=== PATIENT | female | born 1980 | race Caucasian/White ===

== ENCOUNTER 2025-04-21 16:30 | Emergency (ER) | payer OTHER, SELFPAY ==
--- NOTE | ~2025-04-21 | XR_ITS ---
EXAMINATION: XR chest 2V, 04/21/2025 16:50 SPEECH PATHOLOGY SUPERVISOR HISTORY: CP AND SOB X 1HR COMPARISON: No comparisons available. Technique: 2 views obtained. Findings: The lungs are clear, no effusion. No pneumothorax. Heart is normal size. Mediastinal and hilar contours are within normal limits. Bony thorax no acute abnormality. Impression: No acute cardiopulmonary abnormality. Reviewed, dictated and finalized at location P. [facility] PATHOLOGY SUPERVISOR Impression: No acute cardiopulmonary abnormality.
--- NOTE | ~2025-04-21 | CT_ITS ---
Concha Long EXAMINATION: CT abdomen pelvis w con COMPARISON: None HISTORY: Epigastric pain, elevated lipase TECHNIQUE: Axial images were obtained through the abdomen, pelvis post administration of IV contrast. Oral contrast was also administered. Coronal reconstruction images were obtained from the axial views. CT scan performed using dose optimization techniques including the following automated exposure control; adjustment of mA and/or kV; use of iterative reconstruction technique. Automatic exposure control was used to reduce radiation dose. Permanent radiation dose record is archived to PACS. FINDINGS: CT abdomen: LUNG BASES: The lung bases are clear. The visualized portions of the heart and pericardium are unremarkable. LIVER: Mild hepatic steatosis. Subcentimeter probable liver cysts. SPLEEN: Unremarkable. KIDNEYS: Right Kidney: Unremarkable. No calculi. No hydronephrosis. Left Kidney: Unremarkable. No calculi. No hydronephrosis ADRENAL GLANDS: Unremarkable. PANCREAS: Unremarkable. GALLBLADDER/BILIARY: The gallbladder is not clearly identified. STOMACH AND ESOPHAGUS: Visualized stomach and esophagus within normal limits. BOWEL/MESENTERY: Moderate fecal content. There is no colitis or diverticulitis. Appendix normal. Mesentery normal. No thickened or dilated loops of small bowel. ADENOPATHY/RETROPERITONEUM: No lymphadenopathy. AORTA/VASCULATURE: Normal caliber aorta. FREE FLUID OR FREE AIR: No free fluid.. CT pelvis: SOLID ORGANS/REPRODUCTIVE: Unremarkable. BLADDER: Within normal limits. OSSEOUS STRUCTURES: No acute osseous abnormality.No suspicious lesions. OVERLYING SOFT TISSUES: Unremarkable. IMPRESSION: 1. No acute intra-abdominal process identified Reviewed, dictated and finalized at location P. INE TAPER
--- NOTE | 2025-04-21 16:10 | ECG_ITS ---
Test Date: 2025-04-21 16:12:11 Measurements Intervals [place] Rate: 82 P: 59 ID: [id number] QRS: 62 QRSD: 87 T: 41 QT: 359 QTc: 421 Interpretive Statements SINUS RHYTHM No previous ECG available for comparison Electronically Signed On 04-21-2025 22:54:26 TIRE SPECIALIST by Nick Zuñiga M.D.
[2025-04-21 16:19] LABS: Hematocrit 45.4 % (37.0-47.0); Hemoglobin 15.4 g/dL (12.0-15.0); Immature Granulocyte Percent A 0.2 % (0-0.5); Lymphocytes Absolute Auto 2.26 K/mm3 (0.9-3.2); Mean Corpuscular HGB Conc 33.9 g/dl (32-36); Mean Corpuscular Hemoglobin 32.4 pg (26-34); Mean Corpuscular Volume 95.6 fl (80-100); Nucleated Red Blood Cells Absolute Auto 0.000 K/mm3 (0.0-0.012); Nucleated Red Blood Cells Perc 0.0 % (0.0-0.2); Platelet Count Result 302 k/mm3 (150-375); Red Blood Count 4.75 M/mm3 (4.2-5.4); White Blood Count 12.9 K/mm3 (4.5-10.0)
[2025-04-21 16:33] LABS: INR 1.0; Prothrombin Time 13.2 Seconds (11.1-14.7)
[2025-04-21 16:34] LABS: Partial Thromboplastin Time 31.3 Seconds (22.3-36.8)
[2025-04-21 16:39] LABS: Alanine Aminotransferase 40 U/L (6-35); Albumin Level 4.7 g/dL (3.5-5.1); Alkaline Phosphatase 84 U/L (38-126); Anion Gap 9 mmol/L (4-12); Aspartate Amino Transferase 65 U/L (14-36); Bilirubin,Total 0.7 mg/dL (0.2-1.3); Blood Urea Nitrogen 13 mg/dL (7-17); Calcium 9.9 mg/dL (8.4-10.2); Carbon Dioxide 26 mmol/L (22-30); Chloride 104 mmol/L (98-107); Estimated Glomerular Filt Rate > 60; Glucose 124 mg/dL (65-110); Lipase 986 U/L (23-300); Potassium 3.5 mmol/L (3.4-5.0); Sodium 139 mmol/L (137-145); Total Protein 8.1 g/dL (6.3-8.2)
--- OUTSIDE RECORDS SUMMARY | 2025-04-21 16:47 | XMS_ITS | Encounter Summary ---
Author Organization [facility] Healthcare Address [address] [place] [address] Care Team Providers Care Arboriculture Instructor Name Role Phone Ceasar Amaya MD Primary Care Provider + Encounter Details Date Type Department Care Team (Late st Contact Info) Description 03/22/2025 Results Follow-Up [facility] [address] [place] [address] [address] [place] [address] Apurva Marie, PRIVACY ANALYST 4 [facility] [address] [address] Pap and HPV, reflex to HPV Genotypes, Screening Mammogram Bilateral W Margarito Social History Tobacco Use Types Packs/Day Years Used Date Smoking Tobacco: Former Cigarettes Passive Smoke Exposure: Past Alcohol Use Standard Drinks/Week Comments No 0 (1 standard drink = 0.6 oz pur e alcohol) AUDIT-C Answer Date Recorded Q1: How often do you have a drink containing alc ohol? Monthly or less 12/12/2021 Q2: How many drinks containi ng alcohol do you have on a typical day when you are drinking? 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
--- OUTSIDE RECORDS SUMMARY | 2025-04-21 16:47 | XMS_ITS | Encounter Summary ---
Author Organization [facility] Address [address] [place] [address] Phone Care Team Providers Care Consulting Engineer Name Role Phone Ceasar Amaya MD Primary Care Provider [phone] Lakesha Bautista APRN, ANALYSIS TESTER Unavailable [phone] [phone] Reason for Visit * Reason Comments Medication Refill Encounter Details Date Type Department Care Team (Late st Contact Info) Description 12/18/2021 Refill [facility] - Primary Care - [place] [address] [place] [id number] Ceasar Amaya MD [address] [place] [address] Medication Refill Social History Tobacco Use Types Packs/Day Years Used Date Smoking Tobacco: Every Day Cigarettes 0.3 25.4 Started: 11/15/1999 Smokeless Tobacco: Never Alcohol Use Standard Drinks/Week Comments Yes 0 (1 standard drink = 0.6 oz pur e alcohol) Rare PHQ-2 Answer Date Recorded PHQ-2 Score 10 02/14/2019 Sexually Active Control Partners Comments Yes I.U.D. 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 No / Unsure 11/21/2021 11:31 AM CDT documented as of this encounter Miscellaneous Notes * Telephone Encounter - Charlotte Kc CMA - 12/18/2021 11:08 AM CDT Instaclustrhart message sent. * Telephone Encounter - Ceasar Amaya MD - 12/18/2021 10:30 AM CDT Refill request approved. Please remind patient to schedule a follow-up fasting well exam in April. * Telephone Encounter - Analilia Pink RN - 12/18/2021 10:18 AM CDT Medication failed the protocol, provider to review and approve the medication order if appropriate. Requested Prescriptions Pending Prescriptions Disp Refills meloxicam (MOBIC) 15 MG Tablet [Pharmacy Med Name: MELOXICAM 15MG TABLETS] 30 Tablet 0 Sig: TAKE 1 TABLET BY MOUTH DAILY NSAIDs Protocol Failed - 12/18/2021 10:09 AM Failed - Normal serum creatinine in past 12 months CREATININE, BLOOD Date Value Ref Range Status 03/31/2021 0.51 (L) 0.60 - 1.10 mg/dL Final Failed - No matching NSAID med order in past 45 days Matching medication order placed on 11/21/2021 11:48 AM Order [id number]: meloxicam (MOBIC) 15 MG Tablet (For orders placed between 11/03/2021 10:18 AM and 12/18/2021 10:18 AM) Passed - No positive test in the past 12 months or most recent test was negative Passed - Visit with relevant provider in past 12 months or upcoming 90 days Recent Visits Date Type Provider Dept 11/21/21 Office Visit Ceasar Amaya MD [facility] 10/17/21 Office Visit Katlin Ramos APRN, CIARAN [facility] [address] 06/20/21 Office Visit Ceasar Amaya MD [facility] [address] 03/31/21 Office Visit Manjit Hayden, JENNIFER [facility] Showing recent visits within past 365 days and meeting all other requirements Future Appointments No visits were found meeting these conditions. Showing future appointments within next 90 days and meeting all other requirements Passed - No active on record Passed - AST less than 55 or ALT less than 90 in past 12 months SGOT (AST) Date Value Ref Range Status 03/31/2021 17 <=32 U/L Final SGPT (ALT) Date Value Ref Range Status 03/31/2021 14 <=41 U/L Final Passed - HGB greater than 10 or HCT greater than 30 in past 12 months HEMOGLOBIN (HGB) Date Value Ref Range Status 03/31/2021 14.7 12.0 - 15.8 g/dL Final HEMATOCRIT (HCT) Date Value Ref Range Status 03/31/2021 45.2 36.0 - 47.0 % Final documented in this encounter Plan of Treatment Not on file documented as of this encounter Visit Diagnoses Diagnosis Injury of right ankle, initial encounter documented in this encounter Additional Health Concerns Assessment Noted Time PHQ-9 Depression Total Score: 10 019 3:00 PM CDT documented as of this encounter Care Teams Consulting Engineer Relationship Specialty Start Date End Date Ceasar Amaya MD [address] [place] [address] PCP - General Internal Medicine 11/14/18 Lakesha Bautista, NEON SIGN WORKER, ANALYSIS TESTER [address] [place] [address] Nurse Practitioner Gynecology 11/14/18 documented as of this encounter
--- OUTSIDE RECORDS SUMMARY | 2025-04-21 16:47 | XMS_ITS | Clinical Summary ---
Author Organization [facility] Building [facility] Address [address] [place] [address] Care Team Providers Care Patient Care Technician Instructor Name Role Phone Ceasar Amaya MD Primary Care Provider + Allergies No known active allergies Medications ibuprofen (ADVIL,MOTRIN) 600 mg tablet Take 1 tablet (600 mg total) by mouth 3 (three) times a day Take with food for pain. 20 tablet 9 Active Additional Information Patient not taking.Reported on 03/15/2025 Active Problems Problem Noted Date Diagnosed Date Cholecystitis 12/12/2021 Assessment & Plan (12/23/2021 9:50 AM CDT): Diet as tolerated. Okay to return to work with light duty. No heavy lifting greater than 20 lb for 4 weeks. No submerging incisions for 4 weeks. Please call for any further questions or concerns. Resolved Problems Problem Noted Date Diagnosed Date Resolved Date Sprain of coccyx 05/15/2019 08/22/2019 Fall (on) (from) other stair s and steps, initial encounter 05/15/2019 08/22/2019 Dysuria 11/23/2016 08/22/2019 Assessment & Plan (11/23/2016 10:37 AM CDT): Urine dip positive for infection; ciprofloxacin 500 mg, 1 tab b.i.d. x7 days, dispense 14 with no refills; call office if symptoms persist beyond treatment. No pathologic diagnosis 10/14/201307/30 Overview (09/04/2016): No diagnosis Encounters Date Type Department Care Team Description 03/26/2025 12:20 PM CDT - 03/26/2025 11:59 PM CDT Hospital Encounter [address] [place] [address] Encounter for screening mammogram for breast cancer Discharge Disposition: Discharge to home or self care 03/22/2025 Results Follow-Up [facility] [address] [place] [address] [address] [place] [address] Apurva Marie NP Pap and HPV, reflex to HPV Genotypes, Screening Mammogram Bilateral W Jermain 03/15/2025 9:15 AM CDT Office Visit [facility] [address] [place] [address] [address] [place] [address] Apurva Marie NP Well woman exam (Primary Dx); Encounter for screening mammogram for breast cancer from Last 3 Months Surgical History Surgery Date Site/Laterality Comments OTHER SURGICAL HISTORY 05/31/2001 - 05/30/2002 : 16 hr labor OTHER SURGICAL HISTORY 05/31/2002 - 05/30/2003 : OTHER SURGICAL HISTORY 05/31/2007 - 05/30/2008 : CHOLECYSTECTOMY 12/12/2021 Medical History Medical History Date Comments Hx Other Medical 2001 ; Outc ome: 38 week 7 lb(s) 11 oz Female Hx Other Medical 2002 ; Outc ome: 39 week 8 lb(s) 14 oz Female Hx Other Medical 2007 ; Outc ome: 40 week 9 lb(s) 9 oz Female Hx Other Medical 2011 ; Comm ents: AT 26 WEEKS; Outcome: 26 week Unknown sex Smoking Family History Medical History Relation Name Comments Diabetes Father Diabetes mellit us; Hypertension Father Hypertension Maternal Grandfather gallbladder cancer Maternal Grandmother Relation Name Status Comments Father Maternal Grandfather Maternal Grandmother Social History Tobacco Use Types Packs/Day Years Used Date Smoking Tobacco: Former Cigarettes Passive Smoke Exposure: Past Tobacco Cessation:Counseling Given: Not Answered Alcohol Use Standard Drinks/Week Comments No 0 [...] should administer the PHQ-9) 0 03/15/2025 Comments No Sex and Gender Information Value Date Recorded Sex Assigned at Not on file 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 Gender Identity Female 02/17/2023 12:10 PM CDT Sexual Orientation Straight 02/17/2023 12 :10 PM CDT Obstetrics History Para Term AB IAB SAB Ectopic Multiple Livin g Live Births 5 4 3 1 1 1 4 4 Date Outcome GA Total Labor Labor//3rd Weight Sex Type Anes PTL Cony A1 A5 Name Clin SAB 09/17 02 Term 38w 0d 3.487 kg (7 lb 11 oz) F CS-Un spec Epidura l Living 02/17 03 Term 39w 0d 4.026 kg (8 lb 14 oz) F CS-Un spec Epidura l Living 05/19 08 Term 40w 0d 4.338 kg (9 lb 9 oz) F CS-Un spec Epidura l Living 07/20 12 27w 0d F Vag-S pont Y Deceas ed Last Filed Vital Signs Vital Sign Reading Time Taken Comments Blood Pressure 106/62 03/15/2025 9:22 AM CDT Pulse 75 12/23/2021 9:35 AM CDT Temperature 36 C (96.8 F) 12/23/2021 9:35 AM CDT Respiratory Rate 18 12/13/2021 6:44 AM CDT Oxygen Saturation 97% 12/23/2021 9:35 AM CDT Inhaled Oxygen Concentration - - Weight 69.9 kg (154 lb 1.6 oz) 03/26/2025 12:48 PM CDT Height 149.9 cm (4' 11.02) 03/26/2025 12:48 PM CDT Body Mass Index 31.11 03/26/2025 12:48 PM CDT Plan of Treatment Health Maintenance Due Date Last Done Comments Hepatitis C Screening 1982 Varicella Vaccines (1 of 2 - 13+ 2-dose series) 08/07/1995 Hepatitis B Screening 2000 HPV Vaccines (1 - 3-dose SCDM series) 2009 DTaP/Tdap/Td Vaccine (2 - Tdap) 07/12/2021 07/12/2011 Influenza Vaccine (#1) 2025 Cervical Cancer Screening 03/15/20262024, 02/05/2023, 08/26/2021 Depression Screening 03/15/2026 03/15/2025, 02/05/2023, 12/12/2021, Additional history exists Regular Well Visit/Exam 18-64 03/15/2026 03/15/2025, 02/05/2023, 08/26/2021, Additional history exists Breast Cancer Screening-Mammogram 03/26/2026 03/26/2025, 10/26/2019, 10/26/2019 Pneumococcal vaccine <65 Aged Out 11/14/2018 No longer eligible based on patient's age to complete this topic Procedures Procedure Name Priority Date/Time Associated Diagnosis Comments SCREENING MAMMOGRAM BILATERAL W JERMAIN Schedule Routine, Read Routine (OP Routine) 03/26/2025 1:04 PM CDT Encounter for screening mammogram for breast cancer PAP AND HPV, REFLEX TO HPV GENOTYPES Routine 03/15/2025 10:49 AM CDT Well woman exam from Last 3 Months Results * Screening Mammogram Bilateral W Jermain (03/26/2025 1:04 PM CDT) Anatomical Region Laterality Modality Breast Bilateral Mammography Impressions 03/26/2025 1:38 PM CDT Bilateral No evidence of malignancy in either breast. OVERALL BI-RADS FINAL ASSESSMENT: 1 - Negative RECOMMENDATION: Recommend bilateral annual screening mammography. Narrative 03/26/2025 1:38 PM CDT EXAMINATION: Screening Mammogram Bilateral W Jermain: 03/26/2025 COMPARISON: Relevant prior studies available at the time of interpretation were reviewed, including the most recent mammogram on: 10/26/2019. TECHNIQUE: Mammography was performed with 2D and 3D digital breast tomosynthesis (DBT) images. CAD was utilized. BREAST PARENCHYMAL COMPOSITION: There are scattered areas of fibroglandular density. FINDINGS: Bilateral There is no suspicious mass, calcification, or architectural distortion in either breast. Apurva Marie MOTOR AND CHASSIS INSPECTOR IMG MAMMO PROCEDURES Final Resul t * Pap and HPV, reflex to HPV Genotypes (03/15/2025 10:49 AM CDT) Clinical indication Comment [facility] - Comment:NEGATIVE FOR INTRAEP ITHELIAL LESION OR MALIGNANCY. Specimen adequacy: Comment [facility] - 01 Comment:Satisfactory for stefan luation. No endocervical component is identified. Clinician provided ICD10 Comment [facility] - 01 Comment:[id number] Performed by Comment [facility] - 01 Comment:Apurva Freeman, Cyto logist (ASCP) . . [facility] - 01 Note: Comment [facility] - 01 Comment: The Pap smear is a screening test designed to aid in the detection of premalignant and malignant conditions of the uterine cervix. It is not a diagnostic procedure and should not be used as the sole means of detecting cervical cancer. Both false-positive and false-negative reports do occur. Test methodology Comment [facility] - Comment: This liquid based ThinPrep(R) pap test was interpreted using the Chainalytics(R) Genius(TM) Cervical Algorithm whole slide imaging system. HPV Aptima Negative Negative [facility] 02 Comment: This nucleic acid amplification test detects fourteen high-risk HPV types (16,18,31,33,35,39,45,51,52,56,58,59,66,68) without differentiation. HPV Genotype Reflex Comment [facility] - Comment:Criteria not met, HP V Genotype not performed. Thin prep-Endocervical 03/15/2025 10:49 AM CDT 03/15/2025 Narrative [facility] - 03/20/2025 6:10 PM CDT Performed at: - [facility] [id number] Machine Hand: Eleonora Ceron MD, Phone: [phone] Performed at: - [facility] [id number] Machine Hand: Eleonora Ceron MD, Phone: [phone] Specimen Comment: [id number] Specimen Comment: No. of containers..01 ThinPrep Vial us Apurva Marie NP LAB CYTOLOGY ORDERABLES Final Re sult [facility] - 01 [facility] 02 from Last 3 Months Insurance [employer] [facility] PLUS [place] [id number] Advance Directives For more information, please contact: [phone] * Full Code (Latest Code Status on File) Date Activated Date Inactivated Comments 12/12/2021 6:20 PM 12/13/2021 10:28 PM Care Teams Patient Care Technician Instructor Relationship Specialty Start Date End Date Ceasar Amaya MD PCP - General 10/26/19
--- OUTSIDE RECORDS SUMMARY | 2025-04-21 16:47 | XMS_ITS | Clinical Summary ---
Author Organization [facility] Address [address] [place] [address] Phone Care Team Providers Care Navigation Teacher Name Role Phone Ceasar Amaya MD Primary Care Provider [phone] Lakesha Bautista APRN, MEDICAL STAFF ASSISTANT Unavailable +1 [phone] Allergies No known active allergies Medications meloxicam (MOBIC) 15 MG TabletIndication s:Injury of right ankle, initial encounter TAKE 1 TABLET BY MOUTH DAILY 30 Tablet 12/18/2021 Active Active Problems No known active problems Resolved Problems Problem Noted Date Diagnosed Date Resolved Date Sprain of coccyx 05/15/2019 11/21/2021 Immunizations Immunization Administration Dates Next Due DTAP VACCINE 07/12/2011 Pneumococcal Vaccine Adult - 23 Valent 9 Family History Medical History Relation Name Comments No Known Problems Brother Diabetes Father No Known Problems Mother Cancer Paternal Grandmother Rhett dder? Diabetes Paternal Great-Grandmother No Known Problems Sister 1 No Known Problems Sister 2 Relation Name Status Comments Brother Alive Father Alive Mother Alive Paternal Grandmother Paternal Great-Grandmother Sister 1 Alive Sister 2 Alive Social History Tobacco Use Types Packs/Day Years Used Date Smoking Tobacco: Some Days Cigarettes 0.2 25.4 Started: 11/15/1999 Smokeless Tobacco: Never Tobacco Cessation:Ready to Q uit: Not Asked; Counseling Given: Not Answered Alcohol Use Standard Drinks/Week Comments Yes 0 (1 standard drink = 0.6 oz pur e alcohol) Rare PHQ-2 Answer Date Recorded Total Score - Questions 1-9 0 01/29 Sexually Active Control Partners Comments Yes I.U.D. 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 Not on file Not on file Last Filed Vital Signs Vital Sign Reading Time Taken Comments Blood Pressure 118/68 02/14/2024 4:39 PM CDT Pulse 77 02/14/2024 4:39 PM CDT Temperature 36.2 C (97.1 F) 02/14/2024 4:39 PM CDT Respiratory Rate 16 02/14/2024 4:39 PM CDT Oxygen Saturation 98% 02/14/2024 4:39 PM CDT Inhaled Oxygen Concentration - - Weight 85.1 kg (187 lb 9.6 oz) 02/14/2024 4:39 P M CDT Height 149.9 cm (4' 11) 02/14/2024 4:39 PM CDT Body Mass Index 37.89 02/14/2024 4:39 PM CDT Plan of Treatment Health Maintenance Due Date Last Done Comments Varicella Immunization (1 of 2 - 13+ 2-dose series) 08/07/1995 Hepatitis B Immunization (1 of 3 - 19+ 3-dose series) 2001 Pap Smear 08/07/2003 Human Papillomavirus (HPV) Immunization (1 - 3-dose SCDM series) 2009 Pneumococcal Immunization Combined (2 of 2 - PCV) 11/15/2019 11/14/2018 Influenza Immunization (#1) 2025 SARS-COV-2 Immunization ( season) 2025 08/18/2020, 07/28/2020 Mammogram 03/26/2026 03/26/2025, 10/26/2019, 10/26/2019 Cervical Cancer Screening (CCS) 02/06/2028 HPV/Cotest 02/06/2028 02/05/2023 Respiratory Syncytial Virus (RSV) Immunization (Adult) (1 - 1-dose 75+ series) 2057 DTaP/Tdap/Td Immunization Discontinued 07/12/2011 Hepatitis C Virus (HCV) Screening Completed 03/31/2021 Discussion re Starting/Frequency of Mammograms Completed 03/26/2025, 10/26/2019, 10/26/2019 Meningococcal Immunization (ACWY) Aged Out No longer eligible based on patient's age to complete this topic Rotavirus Immunization Aged Out No lo nger eligible based on patient's age to complete this topic Procedures Procedure Name Priority Date/Time Associated Diagnosis Comments MAMMOGRAM BILATERAL GENERIC 03/26/2025 12:00 AM CDT HEPATITIS C ANTIBODY Routine 03/31/2021 2:15 PM CDT Preventative health care (Adult) Personal history of tobacco use, presenting hazards to health from Last 3 Months or Most Recently Relevant to Health Maintenance Results * MAMMOGRAM BILATERAL GENERIC (03/26/2025 12:00 AM CDT) 03/26/2025 us Provider Scan IMG MAMMO ORDERABLES Final Resul t SCAN * HEPATITIS C ANTIBODY (03/31/2021 2:15 PM CDT) hepatitis C antibody 0.12 <1 S/[facility] ARCH [id number] 03/31/2021 9:34 PM CDT [facility] Comment: Signal/Cutoff ratio < 0.79 is Nondetected Signal/Cutoff ratio 0.80-0.99 is Grayzone Signal/Cutoff ratio > 0.99 is Detected Supplemental assays are recommended if signal/cutoff ratio is >/=1.00. Signal/cutoff ratio result >/= 5.00 is 97% predictive of positivity for recombinant immunoblot assay (RIBA) and will be reported to the [place] Department of Public Health as required. Blood Venipuncture / Unknown 03/31/2021 2:15 PM CDT 03/31/2021 2:16 PM CDT us Manjit Hayden PAC CHEMISTRY ORDERABLES Fin al Result [facility] [address] [place] [address], [place] from Last 3 Months or Most Recently Relevant to Health Maintenance Insurance [facility] Care Teams Navigation Teacher Relationship Specialty Start Date End Date Ceasar Amaya MD [address] [place] [address] PCP - General Internal Medicine 11/14/18 Lakesha Bautista, SUPERVISOR CAB, MEDICAL STAFF ASSISTANT [address] [place] [address] Nurse Practitioner Gynecology 11/14/18
[2025-04-21 16:50] LABS: Troponin I < 0.012 ng/mL (0.000-0.034)
--- NOTE | 2025-04-21 16:55 | ED_ITS ---
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 Nursing and ancillary documentation was reviewed. Exam 2 Narrative: GENERAL: Well-appearing, well-nourished, and in no acute distress. HEAD: Normocephalic, atraumatic. EYES: PERRLA and EOMI. ENT: Nares clear, no rhinorrhea or epistaxis. Mucous membranes moist. NECK: Supple. CHEST: Clear to auscultation. No respiratory distress. HEART: Regular rate and rhythm. No murmur heard. Normal peripheral pulses. ABDOMEN: Soft, nontender, nondistended, normal active bowel sounds. EXTREMITIES: Normal range of motion. No edema. SKIN: Warm, dry, no rash. NEURO: No focal deficits. Alert and oriented x3. PSYCH: Normal mood and affect. Medical Decision Making MDM Narrative Medical decision making narrative: Differential diagnosis includes ACS, chest respiratory irritation, pancreatitis Laboratory studies were obtained on the patient showed a slightly elevated lipase at 986. Liver enzymes were slightly elevated AST of 65 and ALT 40 bilirubin was normal at 0.7. The patient has had a prior cholecystectomy CT scan of the abdomen pelvis was obtained that showed no evidence of acute pancreatitis Initial troponin was negative EKG showed no acute ischemic changes Chest x-ray showed no focal infiltrate Repeat troponin is currently pending Lab Data 04/21/25 16:13 04/21/25 16:13 Labs: Lab Results 04/21/25 04/21/25 Range/Units 16:13 19:18 WBC 12.9 H (4.5-10.0) K/mm3 RBC 4.75 (4.2-5.4) M/mm3 Hgb 15.4 H (12.0-15.0) g/dL Hct 45.4 (37.0-47.0) % MCV 95.6 (80-100) fl MCH 32.4 (26-34) pg MCHC 33.9 (32-36) g/dl RDW 12.1 (11.5-14.5) % Plt Count 302 (150-375) k/mm3 MPV 9.1 (7.4-10.4) fl Immature Gran % (Auto) 0.2 (0-0.5) % Neut % (Auto) 74.6 H (45.5-73.1) % Lymph % (Auto) 17.5 L (18.3-44.2) % [place] % (Auto) 6.2 (2.6-8.5) % Eos % (Auto) 1.1 (0-4.4) % Baso % (Auto) 0.4 (0.2-1.2) % Lymph # (Auto) 2.26 (0.9-3.2) K/mm3 [place] # (Auto) 0.8 H (0.1-0.6) K/mm3 Eos # (Auto) 0.1 (0-0.3) K/mm3 Baso # (Auto) 0.1 (0.0-0.1) K/mm3 Abs Immat Gran (auto) 0.03 (0.00-0.031) K/mm3 Absolute Neuts (auto) 9.7 H (1.3-6.7) K/mm3 Absolute Nucleated RBC 0.000 (0.0-0.012) K/mm3 Nucleated RBC % 0.0 (0.0-0.2) % PT 13.2 (11.1-14.7) Seconds INR 1.0 APTT 31.3 (22.3-36.8) Seconds Sodium 139 (137-145) mmol/L Potassium 3.5 (3.4-5.0) mmol/L Chloride 104 (98-107) mmol/L Carbon Dioxide 26 (22-30) mmol/L Anion Gap 9 (4-12) mmol/L BUN 13 (7-17) mg/dL Creatinine 0.90 (0.7-1.0) mg/dL Estim Creat Clear Calc Not Reportable Estimated GFR > 60 (59 - ) Glucose 124 H (65-110) mg/dL Calcium 9.9 (8.4-10.2) mg/dL Total Bilirubin 0.7 (0.2-1.3) mg/dL AST 65 H (14-36) U/L ALT 40 H (6-35) U/L Alkaline Phosphatase 84 (38-126) U/L Troponin I < 0.012 < 0.012 (0.000-0.034) ng/mL Total Protein 8.1 (6.3-8.2) g/dL Albumin 4.7 (3.5-5.1) g/dL Lipase 986 H (23-300) U/L Discharge Plan Discharge Clinical Impression: Atypical chest pain Patient Disposition: Home Condition: Stable Instructions: Antibiotic Form, Chest Pain (ED), Pancreatitis (ED) Additional Instructions: Your lipase level was slightly elevated this could be findings of early pancreatitis the CT scan did not show evidence of pancreatitis at this if you develop severe abdominal pain please return to the emergency department. It is recommended the for the next 24 hours you do a clear liquid diet to rest her abdomen. If her symptoms worsen please return to the emergency department. Patient Language: Welsh Follow-up/Referrals: Jose Luis,Ceasar George MD [Primary Care Provider, Unknown] Time of Disposition: 19:29
[2025-04-21 19:51] LABS: Troponin I < 0.012 ng/mL (0.000-0.034)
[2025-04-21 20:17] VITALS: BP 134/88; PULSE 70; RESP 20; TEMP 36.7; O2SAT 100
== END 2025-04-21 20:19 | disposition home or self-care (01) ==
PROVIDERS: Emergency Provider Emergency Medicine; PCP Internal Medicine
DX: R07.89 Other chest pain (principal)
CPT/HCPCS: 36415; 71046; 74177; 80053; 83690; 84484; 85025; 85610; 85730; 93005; 99284; Q9967